=== PATIENT | male | born 2005 | race Caucasian/White ===

== ENCOUNTER 2025-05-02 23:02 | Emergency (ER) | payer MEDICAID, OTHER ==
[~2025-05-02] VITALS: Ht 175.3 cm; Wt 54.0 kg
[2025-05-02] MEDS: IOHEXOL 350 MG/ML 100ML IJ ONE (00:36)
[2025-05-02] MEDS: fentaNYL CITRATE 100 MCG/2 ML VL IV ONE (23:19)
[2025-05-02] MEDS: ONDANSETRON HCL 4 MG/2 ML VIAL IV ONE (23:20)
[2025-05-02] MEDS: ONDANSETRON HCL 4 MG/2 ML VIAL ONE (23:21)
[2025-05-02] MEDS: ACETAMINOPHEN IV 1000 MG/100ML (10MG/ML) IV ONE (23:23)
[2025-05-02] MEDS: KETOROLAC TROMETH 30 MG/ML 1ML VIAL IV ONE (23:23)
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
[2025-05-02 23:41] LABS: Basophils # (auto) 0 10 ^3/uL (0-0.2); Basophils % (auto) 0.5 % (0.0-2.0); Eosinophils # (auto) 0 10 ^3/uL (0-0.8); Eosinophils % (auto) 0.2 % (0.0-7.0); Hematocrit 39.8 % (41.0-53.0); Hemoglobin 14.1 g/dL (13.5-17.5); Lymphocytes # (auto) 3.1 10 ^3/uL (0.4-5.4); Lymphocytes % (auto) 32.7 % (10.0-50.0); Mean Corpuscular Hemoglobin 32.3 pg (28.0-32.0); Mean Corpuscular Hgb Conc. 35.4 g/dL (32.0-36.0); Mean Corpuscular Volume 91.4 fL (80.0-100.0); Monocytes # (auto) 0.5 10 ^3/uL (0-1.3); Monocytes % (auto) 5.1 % (0.0-12.0); Neutrophils # (auto) 5.8 10 ^3/uL (1.6-8.6); Neutrophils % (auto) 61.5 % (37.0-80.0); Nucleated Red Blood Cells % 0.1 %; Platelet Count (auto) 281 10^3/uL (140-450); Red Blood Cells 4.36 10^6/uL (4.5-5.90); Red Cell Distribution Width 12.8 % (11.8-14.3); White Blood Cell 9.4 10^3/uL (4.4-10.8)
[2025-05-02 23:49] LABS: Sodium 144 mmol/L (136-145)
[2025-05-02 23:50] LABS: Anion Gap 13 (5-15); Carbon Dioxide 22 mmol/L (20-31)
[2025-05-02 23:51] LABS: Calcium 10.4 mg/dL (8.7-10.4); Chloride 109 mmol/L (98-107); Potassium 3.4 mmol/L (3.5-5.1)
[2025-05-02 23:55] LABS: BUN/Creatinine Ratio 10.6 (10.0-20.0); Blood Urea Nitrogen 12 mg/dL (9-23); Glucose 153 mg/dL (74-106)
[2025-05-03] MEDS: SODIUM CHLORIDE 0.9% 1,000 ML IV ONE (00:35)
[2025-05-03] MEDS: ceFAZolin 2 GM/D5W50ml 50 ML IV ONE (00:36)
--- NOTE | 2025-05-03 00:40 | DVH ---
CLINICAL INDICATION: open fracture TECHNIQUE: XY R ANKLE 3 VIEW Comparison: None FINDINGS/IMPRESSION: : Cast material partially obscures detail. Mildly displaced medial malleolar fracture. Moderately displaced fracture of the 5th metatarsal neck. Soft tissues are unremarkable.
[2025-05-03] MEDS: MORPHINE SULFATE INJ 2 MG/ml SYRG ONE (01:22)
[2025-05-03] MEDS: MORPHINE SULFATE INJ 2 MG/ml SYRG IV ONE (01:30)
[2025-05-03 01:39] LABS: Urine Bacteria None Seen /hpf (None Seen)
[2025-05-03 01:42] LABS: Urine Blood Negative /uL (Negative); Urine Clarity Clear (Clear); Urine Color Light-Yellow (Yellow); Urine Mucus FEW (None Seen); Urine Protein, UAD Negative (Negative); Urine Squamous Epithelial Cell None Seen /hpf (<5); Urine Urobilinogen Normal (Negative); Urine WBC < 1 /HPF (0-3); Urine pH 6.5 (5.0-9.0)
[2025-05-03 02:45] VITALS: PULSE 100; RESP 15; TEMP 98.5; O2SAT 97
[2025-05-03 03:01] VITALS: BP 126/79
[2025-05-03] MEDS: fentaNYL CITRATE 5 ML ONE (03:01)
[2025-05-03] MEDS: fentaNYL CITRATE 100 MCG/2 ML VL IV ONE (03:01)
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
== END 2025-05-03 03:05 | disposition short-term general hospital (02) ==
LOC: ER 23:02
DX: S82.51XB Displaced fracture of medial malleolus of right tibia, initial encounter for open fracture type I or II (principal); X58.XXXA Exposure to other specified factors, initial encounter; Y93.55 Activity, bike riding; Y92.410 Unspecified street and highway as the place of occurrence of the external cause; Y99.8 Other external cause status
CPT/HCPCS: 36415; 73610; 73706; 80048; 81001; 85025; 96365; 96375; 96376; 99285; J0690; J1885; J2270; J2405; J3010; J7030; Q9967; J0131